=== PATIENT | male | born 1990 | race Caucasian/White ===

== ENCOUNTER 2024-02-19 18:00 | Emergency (ER) | payer SELFPAY ==
[~2024-02-19] VITALS: Ht 175.3 cm; Wt 81.6 kg
[2024-02-19 18:07] VITALS: O2SAT 98
[2024-02-19] MEDS ORDERED: IBUPROFEN 600MG TABLET PO ONE (18:45)
[2024-02-19] MEDS ORDERED: IBUP-2029 MT (19:31)
[2024-02-19 19:45] VITALS: BP 129/76; PULSE 84; RESP 16; TEMP 36.66960; O2SAT 100
== END 2024-02-19 20:00 | disposition home or self-care (01) ==
LOC: ER 18:00
DX: S80.11XA Contusion of right lower leg, initial encounter (principal); X58.XXXA Exposure to other specified factors, initial encounter; Y93.89 Activity, other specified; Y92.89 Other specified places as the place of occurrence of the external cause; Y99.8 Other external cause status
CPT/HCPCS: 73590; 93005; 99283